=== PATIENT | male | born 1955 | race Caucasian/White ===

== ENCOUNTER 2020-11-29 17:29 | Emergency (ER) | payer MEDICARE ==
[~2020-11-29 17:29] MED LIST: ASPIRIN EC81 MG PO; COLACE 100MG C100 MG PO; LIPITOR TAB 2020 MG PO; SOTALOL80 MG PO; TYLENOL 500 MG500 MG PO; XARELTO20 MG PO
[2020-11-29 20:30] LABS: HEMOGLOBIN 16.9 gm/dl (14.0-17.5); RED BLOOD COUNT 5.16 M/UL (4.20-5.50)
[2020-11-29 20:45] LABS: BUN/CREATININE RATIO 14 (0-10)
== END 2020-11-29 22:22 | disposition home or self-care (01) ==
LOC: ER1 17:29
PROVIDERS: Family Medicine
DX: R31.9 Hematuria, unspecified (principal); Z79.01 Long term (current) use of anticoagulants; I48.91 Unspecified atrial fibrillation; I10 Essential (primary) hypertension; Z88.7 Allergy status to serum and vaccine; Z79.899 Other long term (current) drug therapy
CPT/HCPCS: 80053; 81001; 85025; 87086; 99284

== ENCOUNTER → 2021-02-06 | Outpatient (CLI) | payer MEDICARE | LOC: KOH-I 01-25 15:45 | DX: N40.0 Benign prostatic hyperplasia without lower urinary tract symptoms (principal); N43.3 Hydrocele, unspecified | CPT/HCPCS: 76870 ==

== ENCOUNTER → 2021-04-16 | Outpatient (CLI) | payer MEDICARE | LOC: HEART 5 12-27 10:00 | DX: R06.02 Shortness of breath (principal); I34.0 Nonrheumatic mitral (valve) insufficiency | CPT/HCPCS: 93306 ==